=== PATIENT | female | born 2000 | race Caucasian/White ===

== ENCOUNTER 2024-03-27 23:22 | Emergency (ER) | payer OTHER ==
[2024-03-27 23:28] VITALS: BP 106/58; PULSE 62; RESP 18; TEMP 98.3; BMI 22.4
[2024-03-28] MEDS ORDERED: ALBUTEROL SO4 2.5/IPRATROPIUM 0.5 INH SOL 3 ML VIAL.NEB. NEB ONE (00:24)
[2024-03-28] MEDS: ALBUTEROL SO4 2.5/IPRATROPIUM 0.5 INH SOL 3 ML VIAL.NEB. NEB ONE (00:52)
[2024-03-28 01:33] LABS: HIV INTERPRETATION NEGATIVE (NEGATIVE)
== END 2024-03-28 01:39 | disposition home or self-care (01) ==
LOC: JERFT 23:22
PROC: 3E0F7GC Introduction of Other Therapeutic Substance into Respiratory Tract, Via Natural or Artificial Opening (ICD-10-PCS; principal; 2024-03-28)
DX: J30.2 Other seasonal allergic rhinitis (principal); R06.2 Wheezing
CPT/HCPCS: 36415; 87389; 99283-25